=== PATIENT | male | born 1970 | race Caucasian/White ===

== ENCOUNTER 2017-06-01 07:35 | Day surgery (SDC) | payer BC ==
--- NOTE | 2017-03-14 11:37 | HP ---
DATE OF ADMISSION: 04/22/2017 DATE OF DICTATION: 03/01/2017 DATE OF SURGERY: 04/22/2017. REASON FOR ADMISSION: Right inguinal hernia. BRIEF HISTORY: This is a 46-year-old gentleman who was initially evaluated in November 2012 for a right inguinal hernia. At that time he was diagnosed and recommended to undergo surgery. Due to personal issues, patient was unable to follow through with surgery. He was fine over the past 3 to 3-1/2 years; however, 2 weeks ago he had woken up with sharp pain in the right groin region that lasted the better part of most of the day. The patient felt nauseous, he was anorexic, and had some chills associated with the pain. The pain that woke him up from sleep was noted to be in his right groin. He thought it was related to the hernia. He denies feeling a lump in the area but he was exquisitely tender and he really did not examine himself well. The patient now thinks that his hernia has worsened and therefore he wished to have this repaired. Upon questioning this gentleman, he has had no further episodes of that type of pain; however, he does occasionally have pain in the right groin that radiates into the right testicle and it feels like somebody is pulling on his testicle. He has no change in bowel habits, no nausea, no vomiting. Past medical history is significant for hypertension, hypercholesterolemia, diabetes, and a newly discovered sugar in his urine as well as some microscopic blood. PAST SURGICAL HISTORY: None. MEDICATIONS: Lisinopril 20 mg twice a day and amlodipine 10 mg daily. ALLERGIES: None. SOCIAL HISTORY: Patient works at [employer]. He does not smoke. He drinks socially. PHYSICAL EXAMINATION: Lungs: Clear. Heart: Regular. Abdomen: Soft, nontender, nondistended. He has a chronically incarcerated umbilical hernia, incidental finding. He has a moderate size right inguinal hernia, which is partially reducible in the supine position. The right scrotum and testicle is within normal limits. Some laxity noted in the left groin. No obvious defect. Scrotum and testicle on the left side is normal. IMPRESSION/PLAN: Right groin pain, right inguinal hernia: This is a 46-year-old gentleman with a known right inguinal hernia for the past 3 to 4 years. It is causing him discomfort at this time with right groin pain and he wished to have this repaired. I have explained very clearly to this patient that his right groin pain may be related to the hernia but the hernia may have nothing to do with the episodic pain he experiences. He understands this but still wished to have this hernia repaired. Due to the laxity noted on exam, I suspect he may have a left inguinal hernia and therefore that will be examined at the same time as surgery. The indications, alternatives, and complications of the procedure have been discussed, questions answered. Will plan to obtain written consent the day of surgery. NADIR AVILA M.D. [id number] cc: MD Isabell Doll FNP
[2017-05-27 09:51] VITALS: BMI 24.7
[2017-06-01] MEDS ORDERED: TAMSULOSIN HCL 0.4 MG CAP.ER.24H (FP) ONE (08:06)
[2017-06-01] MEDS ORDERED: MIDAZOLAM HCL 2 MG/2 ML SINGLE DOSE VIAL ONE ×2 (08:36→09:22)
[2017-06-01] MEDS ORDERED: PROPOFOL 20 ML ONE ×2 (08:36)
[2017-06-01] MEDS ORDERED: fentaNYL CITRATE 250 MCG/5 ML VIAL ONE (08:36)
[2017-06-01] MEDS ORDERED: ROCURONIUM BROMIDE 50 MG/5 ML VIAL ONE (08:37)
[2017-06-01] MEDS ORDERED: ceFAZolin SODIUM 1 GM VIAL ONE (09:06)
[2017-06-01] MEDS ORDERED: ceFAZolin SODIUM 1 GM VIAL IVPB ONE (09:25)
[2017-06-01] MEDS ORDERED: SODIUM CHLORIDE 0.9% P/F 10 ML VIAL IJ ONE (09:26)
[2017-06-01] MEDS ORDERED: GLYCOPYRROLATE 0.2 MG/1 ML VIAL ONE (09:32)
[2017-06-01] MEDS ORDERED: oxyCODONE HCL 5 MG TABLET PO PRN (09:33)
[2017-06-01] MEDS ORDERED: ONDANSETRON 4 MG/2 ML VIAL IVPUSH PRN (09:33)
[2017-06-01] MEDS ORDERED: NEOSTIGMINE METHYLSULFATE 0.5 MG/ML - 10 ML MDV ONE (09:33)
[2017-06-01] MEDS ORDERED: LACTATED RINGERS SOLUTION 1,000 ML IV SCH (09:45)
[2017-06-01] MEDS ORDERED: oxyCODONE HCL 5 MG TABLET ONE (12:47)
[2017-06-01 13:41] VITALS: TEMP 97.9
[2017-06-01 14:10] VITALS: BP 112/60; PULSE 56
--- NOTE | 2017-06-02 10:18 | OP ---
DATE OF OPERATION: 06/01/2017 PREOPERATIVE DIAGNOSIS: Right inguinal hernia. POSTOPERATIVE DIAGNOSES: Right indirect inguinal hernia, attenuation of direct inguinal floor, left indirect inguinal hernia. PROCEDURE: Bilateral inguinal herniorrhaphy with mesh. SURGEON: Delfin Martinez MD INFORMATION TECHNOLOGY ASSOCIATE: Magan Jessica DO ANESTHESIA: Kanika Arias MD (general). ESTIMATED BLOOD LOSS: Minimal. SPECIMEN: None. INDICATION FOR PROCEDURE: This is a 46-year-old gentleman who in 2012 was diagnosed as having a right inguinal hernia. He was recommended to undergo repair at that time but failed to do so due to personal issues. He is now here for operative repair. DESCRIPTION OF PROCEDURE: Patient identified and appropriately positioned on the operating room table. After placement of general anesthesia, the abdomen prepped and draped in the usual sterile fashion with ChloraPrep. An infraumbilical incision was made and deepened through the subcutaneous tissue. The fascia and the rectus muscle on the right identified, divided sharply, and the muscle split under direct vision. A dissector balloon, followed by a structural balloon placed. Also, under direct vision, a suprapubic 11-mm port placed. The following structures on the right side identified: Pubic tubercle, Giancarlo ligament, inferior epigastric vessels, spermatic cord, and lateral abdominal wall. During this dissection, the patient was noted to have attenuation of the direct inguinal floor. There was no defect. He had a moderate-sized, indirect inguinal hernia reduced back into the preperitoneal space. It was densely adherent to the cord structures, and this was with blunt dissection. The closed with 10-mm clip rn l and d. A 4.5 x 6 piece of Versatex mesh was keyholed, placed through the suprapubic port site. The mesh wrapped around the cord structures laterally to reconstruct the internal ring. Laterally, the mesh anchored to the anterior abdominal wall and lateral abdominal wall. Medially, the mesh anchored to the anterior abdominal wall, pubic tubercle, and Giancarlo ligament. Upon completion of the right side, similar structures on the left side identified. On the left side, the patient was noted to have no direct component as well but no attenuation. He had a small indirect inguinal sac, reduced back in the preperitoneal space. Another 4.5 x 6 piece of Versatex mesh was keyholed, placed through the suprapubic port site. The mesh wrapped around the cord structures laterally to reconstruct the internal ring. Laterally, the mesh anchored to the anterior abdominal wall and lateral abdominal wall. Medially, the mesh well overlapped in the midline, anchored to the anterior abdominal wall, pubic tubercle, and Giancarlo ligament. The preperitoneal space desufflated under direct vision. The operative field examined, noted to be hemostatic. The anchoring system used was the ReliaTack suture. All lateral abdominal wall and medial abdominal wall anchors placed under direct counterpalpation. Ports removed. Port sites hemostatic. The fascia at both port sites was noted to be hemostatic and closed with interrupted 0 Vicryl suture. All skin closed with 4- 0 subcuticular Biosyn, followed by Dermabond. At the conclusion of this case, sponge and needle counts were correct. ATTESTATION: A brief operative note handwritten on the preprinted form. [facility] queried prior to giving narcotics. Kim CASTANEDA [id number] cc: Carlito Montesinos MD [facility]
== END 2017-06-01 14:00 | disposition home or self-care (01) ==
LOC: FASU 07:35
PROVIDERS: ATTEND Surgery
PROC: 0YUA0JZ Supplement Bilateral Inguinal Region with Synthetic Substitute, Open Approach (ICD-10-PCS; principal; 2017-06-01 09:00)
DX: K40.20 Bilateral inguinal hernia, without obstruction or gangrene, not specified as recurrent (principal)
CPT/HCPCS: 94760